=== PATIENT | female | born 1990 | race American Indian/Alaskan Native ===

== ENCOUNTER 2019-10-08 15:08 | Emergency (ER) | payer BC ==
--- NOTE | 2019-10-08 17:43 | Event Note ---
{null, ED Screening Note ED Screening Note: states that she was moving and accidentally fell states she felt a popping sensation in the left ankle never injured before states she has been walking with a limp PMHx DVT, on warfarin states she last took it last night, states she needs a refill, takes 10 mg nightly no allergies to meds This initial assessment/diagnostic orders/clinical plan/treatment(s) is/are subject to change based on patients health status, clinical progression and re- assessment by fellow clinical providers in the ED. Further treatment and workup at subsequent clinical providers discretion. Patient/guardian urged not to elope from the ED as their condition may be serious if not clinically assessed and managed. Initial orders include: XR of the left ankle }
[2019-10-08] MEDS ORDERED: ACETAMINOPHEN 325 MG TAB PO ONE (17:45)
--- NOTE | 2019-10-08 18:15 | XRay Report ---
{null, Left ankle, 3 views INDICATION: Ankle pain following fall FINDINGS: There is moderate soft tissue swelling. There is a small transverse lucency through the tip of the medial malleolus which may be a minimal fracture. Ankle otherwise is intact. Signer Name: Angel Moise MD Signed: 10/08/2019 6:11 PM Workstation Name: [id number] }
--- NOTE | 2019-10-08 20:33 | Emergency Department Report ---
{null, ED Lower Extremity HPI - General Chief Complaint: Extremity Injury, Lower Stated Complaint: ANKLE PAIN Time Seen by Provider: 10/08/19 17:42 Source: patient Mode of arrival: Ambulatory Limitations: No Limitations - History of Present Illness MD Complaint: ankle injury -: Sudden Injury: Ankle: Left Type of Injury: inversion Place: work, street/outdoors, other (Accidentally stepped off a curb causing an inversion type injury) Improves With: immobilization Context: walking, jumping Associated Symptoms: swelling, able to partially bear weight - Related Data Previous Rx's Medication Instructions Recorded Last Taken Type Ketorolac [Toradol] 10 mg PO Q6H PRN #20 tablet 10/08/19 Unknown Rx Allergies Allergy/AdvReac Type Severity Reaction Status Date / Time No Known Allergies Allergy Unverified 10/08/19 15:16 ED Review of Systems ROS: Stated complaint: ANKLE PAIN Other details as noted in HPI Comment: All other systems reviewed and negative ED Past Medical Hx - Past Medical History Previous Medical History?: No Additional medical history: blood clot - Surgical History Past Surgical History?: Yes Additional Surgical History: left leg, heart - Social History Smoking Status: Former Smoker Substance Use Type: Alcohol - Medications Home Medications: Home Medications Medication Instructions Recorded Confirmed Last Taken Type Ketorolac [Toradol] 10 mg PO Q6H PRN #20 tablet 10/08/19 Unknown Rx ED Physical Exam - General Limitations: No Limitations General appearance: alert, in no apparent distress - Head Head exam: Present: atraumatic, normocephalic - Eye Eye exam: Present: normal appearance, PERRL, EOMI Pupils: Present: normal accommodation - ENT ENT exam: Present: normal exam, normal orophraynx, mucous membranes moist, TM's normal bilaterally - Neck Neck exam: Present: normal inspection, tenderness, full ROM - Respiratory Respiratory exam: Present: normal lung sounds bilaterally. Absent: respiratory distress, wheezes, rales, chest wall tenderness, accessory muscle use, decreased breath sounds - Cardiovascular Cardiovascular Exam: Present: regular rate, normal rhythm. Absent: systolic murmur, diastolic murmur, rubs, gallop - GI/Abdominal GI/Abdominal exam: Present: soft, normal bowel sounds - Extremities Exam Extremities exam: Present: normal inspection - Back Exam Back exam: Present: normal inspection - Neurological Exam Neurological exam: Present: alert, oriented X3 - Psychiatric Psychiatric exam: Present: normal affect, normal mood - Skin Skin exam: Present: warm, dry, intact, normal color. Absent: rash ED Course Vital Signs 10/08/19 10/08/19 10/08/19 15:16 17:45 18:47 Temperature 98.5 F Pulse Rate 105 H 96 H Respiratory 18 16 Rate Blood Pressure 150/118 141/85 O2 Sat by Pulse 98 Oximetry 10/08/19 19:38 Temperature 98.6 F Pulse Rate 94 H Respiratory 16 Rate Blood Pressure 140/97 O2 Sat by Pulse 100 Oximetry Critical care attestation.: If time is entered above; I have spent that time in minutes in the direct care of this critically ill patient, excluding procedure time. ED Disposition Disposition: [id number]-01 TO HOME OR SELFCARE Is pt being admited?: No Does the pt Need Aspirin: No Condition: Stable Instructions: Ankle Stirrup Splint (ED), Ankle Sprain (ED) Prescriptions: Ketorolac [Toradol] 10 mg PO Q6H PRN #20 tablet PRN Reason: Pain Referrals: PRIMARY CAREMD [Primary Care Provider] - 3-5 Days BEAU MONTELONGO MD [Staff Physician] - 3-5 Days Forms: Work/School Release Form(ED) }
[2019-10-08 21:42] VITALS: BP 140/86
== END 2019-10-08 21:40 | disposition home or self-care (01) ==
LOC: ED 15:08
DX: M25.572 Pain in left ankle and joints of left foot (principal); Z98.890 Other specified postprocedural states; Z87.891 Personal history of nicotine dependence; Z79.899 Other long term (current) drug therapy